=== PATIENT | female | born 1955 | race Two or more races ===

== ENCOUNTER 2024-02-01 05:40 | Day surgery (SDC) | payer OTHER ==
[~2024-02-01 05:40] MED LIST: ATACAND16 MG PO; PRAVASTATIN SOD20 MG; ZETIA10 MG
[2024-02-01] MEDS ORDERED: PERCOCET 5-3251 EACH PO (10:59)
[2024-02-01] MEDS ORDERED: LIDOCAINE HCL 1%/EPINEPHRINE 20ML VIAL IJ ONE (11:00)
[2024-02-01] MEDS ORDERED: CEFAZOLIN SODIUM 1,000 MG VIAL IV ONE (11:00)
[2024-02-01] MEDS ORDERED: HEPARIN SODIUM,PORCINE 500 UNITS/5 ML VIAL IV ONE (11:00)
[2024-02-01] MEDS ORDERED: BUPIVACAINE HCL 30 ML VIAL IJ ONE (11:00)
== END 2024-02-01 14:40 | disposition home or self-care (01) ==
LOC: CIR.AMB 05:40
PROVIDERS: ATTEND Surgery
DX: C20 Malignant neoplasm of rectum (principal)
CPT/HCPCS: 36561; C1751